=== PATIENT | male | born 1955 | race Caucasian/White ===

== ENCOUNTER → 2017-02-18 | Outpatient (CLI) | payer OTHER ==
[~2017-02-18] VITALS: Ht 157.5 cm; Wt 52.2 kg
[~2017-02-18] MED LIST: ACETAMINOPHEN325 M1 PO; ADVAIR 500-501 EACH INH; ALBUTEROL INH IH; ALBUTEROL NEB INH; ALBUTEROL SULFAT4 MG PO; ALBUTEROL2.5 MG/31 IH; ALBUTEROL2.5 MG/32 INH; ALDACTONE25 MG PO; ALLEGRA ALLERG180 MG PO; ALLEGRA-D 24 H1 EACH PO; AMBIEN 10 MG TA10 MG PO; APAP500 PO; ASPIRIN PO; ASPIRIN325 PO; CARVEDILOL12.5 MG PO; CARVEDILOL3.125 MG PO; COMBIVENT INH; COREG PO; COREG25 MG PO; CYMBALTA30 MG PO; CYMBALTA60 MG PO; DETROL LA4 MG PO; DEXILANT60 MG PO; EPIPEN 2-P0.3 MG/0.3 IM; FLONASE 0.05%50 MCG NASAL; FLONASE IH; HYDROXYZINE HCL50 MG PO; KEFLEX250 MG PO; LANOXIN 0.250.25 M1 PO; LISINOPRIL10 MG PO; LISINOPRIL2.5 MG PO; LORTAB OR; LUNESTA PO; LUNESTA3 MG PO; METHOCARBAMOL750 MG PO; PROTONIX40 M1 PO; PROVENTIL HFA6.7 G1 INH; RANITIDINE 150150 M1 PO; ROBAXIN 750 MG750 M1 PO; SIMVASTATIN PO; SINGULAIR 10 MG10 M1 PO; TIZANIDINE HCL4 MG PO; TRAZODONE HCL100 MG PO; VOSPIRE ER4 MG; VOSPIRE PO; WELLBUTRIN XL150 M1 PO; WELLBUTRIN XL300 M1 PO; XOLAIR; XOLAIR IJ; XOLAIR150 MG SUBQ; ZANAFLEX2 M1 PO; ZOCOR 10 MG TAB10 MG PO; ZOLOFT PO; ZOLOFT50 MG PO; ZYFLO 600 MG600 M1 PO; ZYFLO CR600 MG PO
[2017-02-18 10:15] VITALS: BP 128/70
== END | disposition home or self-care (01) ==
LOC: PAIN 06:48
DX: M79.1 Myalgia (principal); F41.8 Other specified anxiety disorders; G89.4 Chronic pain syndrome; Z87.891 Personal history of nicotine dependence

== ENCOUNTER → 2017-08-23 | Outpatient (CLI) | payer OTHER ==
[~2017-08-23] VITALS: Ht 157.5 cm; Wt 50.2 kg
[~2017-08-23] MED LIST changes: +BENZONATATE200 MG PO; -COREG25 MG PO
--- NOTE | ~2017-08-23 | HPC ---
[facility] [place] [address] PAIN MANAGEMENT CONSULTATION Name: RUSTY MÉNDEZ Room #: REG YARI Moore#: [id number] Admission: 08/23/17 Attend Phys: Ron Mahmood DO Discharge: Date of : 55 Report #: [id number] THIS REPORT FOR: //name// CC: Ramone Mahmood DATE OF SERVICE: 08/23/2017 HISTORY OF PRESENT ILLNESS: The patient is a very pleasant 62-year-old gentleman, long treated for myofascial pain requiring complex medication management. He was last seen in pain clinic about 6 months ago in February. We had done trigger point injections x 9 and continued the patient on Cymbalta 60 mg daily, methocarbamol 750 mg up to q.6 hours p.r.n. spasm along with tizanidine 2 mg up to q.6 hours p.r.n. spasm. The patient returns to the pain clinic today noting that following the injections, as usual, he gets excellent relief, the patient reports 80%, for up to 4 months. Pain began to recur. 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 He does ongoing range of motion exercises as he was taught at physical therapy, but notes again pain has begun to recur. He rates it is a 7 on a VAS. Pain is in the upper mid back, right greater than left into the shoulders. He rates it is a 7 on a VAS, seems to exacerbate with activity and with cold. PHYSICAL EXAMINATION: GENERAL: Shows a 62-year-old gentleman, BMI is 20.2 kilograms per meter squared. VITAL SIGNS: Stable as noted on the EMR. MUSCULOSKELETAL: Cervical range of motion is limited. Has trigger points in the bilateral splenius capitis, bilateral trapezius, bilateral upper thoracic paravertebral musculature, bilateral deltoids and right overlying latissimus dorsi more lateral and superior. ASSESSMENT: Myofascial pain, trigger points x 9, requiring complex medication management. RECOMMENDATIONS: 1. Continue current medication unchanged. I have taken the liberty of writing for a 90-day prescription with 1 refill. 2. Trigger point injection today. Again, we talked about concern for ongoing steroid use and osteoporosis, concern for pneumothorax with injections over the upper back. The patient understands and wishes to continue. Several visits ago, we stopped doing medial and lateral epicondyle injections for concern for weakness in the flexor and extensor tendons of the wrist. PROCEDURE NOTE: After written and informed consent was obtained, the [address] [address] PAIN MANAGEMENT CONSULTATION Name: DEV,RUSTY Ariadna Room #: REG CLBen Moore#: [id number] Admission: 08/23/17 Attend Phys: Ron Mahmood DO Discharge: Date of : 55 Report #: [id number] aforementioned 9 discrete muscle groups were identified, cleansed with alcohol and a 25-gauge needle was used to inject 40 mg triamcinolone plus 8 mL of 0.5% preservative-free bupivacaine equally amongst all 9 muscle groups. After all needles removed, the area was cleansed. The patient was monitored for an appropriate period of time, discharged in good stable condition. Followup is as needed. Told to use ice today and continue with range of motion and physical therapy exercises. <ELECTRONICALLY SIGNED> By: Ron Mahmood DO 08/26/17 0816 [id number] 0730 Ron Mahmood DO /nt
[2017-08-23 12:44] VITALS: BP 128/66
== END | disposition home or self-care (01) ==
LOC: PAIN 06:51
DX: M79.1 Myalgia (principal); G89.29 Other chronic pain; Z79.891 Long term (current) use of opiate analgesic; Z87.891 Personal history of nicotine dependence; Z79.899 Other long term (current) drug therapy